=== PATIENT | female | born 1970 | race Caucasian/White ===

== ENCOUNTER 2017-04-25 06:38 | Observation (INO) | payer OTHER ==
[~2017-04-25] VITALS: Ht 172.7 cm; Wt 89.8 kg
[2017-04-25] VITALS (7 sets, daily range): BP systolic 140–151; BP diastolic 80–89
[~2017-04-25 06:38] MED LIST: CHOL500016 PO; CYAN10005 PO; DEXT30CA6 PO; ESTR0.3T PO; FLUT1DIS IH; FOLI1TAB16 PO; LEVO88TA4 PO; PANT40TA5 PO; PROAIR HFA8.5 GM INH
[2017-04-25] MEDS ORDERED: IV RINGERS,LACTATED 1000ML 1,000 ML IV SCH (07:00)
[2017-04-25] MEDS ORDERED: HYDROmorphone 2 MG/ML VIAL IV PRN (07:00)
[2017-04-25] MEDS ORDERED: PROCHLORPERAZINE 10 MG/2 ML VIAL. IV PRN ×2 (07:00→11:00)
[2017-04-25] MEDS ORDERED: ONDANSETRON PF 4 MG/2 ML VIAL. IV PRN ×2 (07:00→11:00)
[2017-04-25] MEDS ORDERED: LIDOCAINE 1% 1 ML SYRINGE. ID PRN (07:00)
[2017-04-25] MEDS ORDERED: LIDOCAINE 1%/EPI 1:100,000 20 ML VIAL. ONE (07:14)
[2017-04-25] MEDS ORDERED: fentaNYL PF VIAL 100 MCG/2 ML VIAL ONE (07:38)
[2017-04-25] MEDS ORDERED: MIDAZOLAM HCL/PF 2 MG/2 ML VIAL. ONE (07:38)
[2017-04-25] MEDS ORDERED: DEXAMETHASONE SOD PHOS 20 MG/5 ML VIAL. ONE (07:39)
[2017-04-25] MEDS ORDERED: PROPOFOL 20 ML IV ONE ×2 (07:39→10:32)
[2017-04-25] MEDS ORDERED: ONDANSETRON PF 4 MG/2 ML VIAL. ONE (07:39)
[2017-04-25] MEDS ORDERED: LIDOCAINE 2% PF Vial for OR 5 ML VIAL. ONE (07:39)
[2017-04-25] MEDS ORDERED: SEVOFLURANE 61 TO 120 MINUTES. IH ONE (07:39)
[2017-04-25] MEDS ORDERED: FAMOTIDINE 20 MG/2 ML VIAL ONE (07:39)
[2017-04-25] MEDS ORDERED: ESTROGENS, CONJ VAGINAL CREAM 30GM TUBE. ONE (07:45)
[2017-04-25] MEDS ORDERED: ePHEDrine PF IN SALINE 50 MG/5 ML DISP.SYRIN IV ONE (09:22)
--- NOTE | 2017-04-25 10:47 | PDOC ---
BRIEF OPERATIVE NOTE Pre-Op Diagnosis 1. AGUSTINA 2. Cystocele Stage 3 3. Rectocele Stage 3 Post-Op Diagnosis Same Procedure Performed 1. Suburethral Bladder Sling 2. Anterior and Posterior Colporrhaphy with Acell bioidentical mesh Surgeon Dr. Esparza Anesthesia Type: General Blood Loss 150 ml Specimens Obtained none Findings Cystocele and rectocele stage 3, AGUSTINA Complications none FREEDOM ESPARZA Jr, MD Apr 25, 2017 10:47
[2017-04-25] MEDS ORDERED: SIMETHICONE 80 MG TAB.CHEW PO PRN (11:00)
[2017-04-25] MEDS ORDERED: diphenhydrAMINE HCL 25 MG CAPSULE PO PRN (11:00)
[2017-04-25] MEDS ORDERED: diphenhydrAMINE 50 MG/ML VIAL IV PRN (11:00)
[2017-04-25] MEDS: fentaNYL PF VIAL 100 MCG/2 ML VIAL IV PRN ×4 (11:00→11:40)
[2017-04-25] MEDS ORDERED: ZOLPIDEM 5 MG TABLET. PO PRN (11:00)
[2017-04-25] MEDS ORDERED: CALCIUM CARBONATE 500 MG TAB.CHEW PO PRN (11:00)
[2017-04-25] MEDS ORDERED: DEXTROSE 50% 25 GM / 50ML DISP.SYRIN. IV PRN (11:00)
[2017-04-25] MEDS ORDERED: 0.9 % SODIUM CHLORIDE 10 ML DISP.SYRIN. IV PRN (11:00)
[2017-04-25] MEDS: GABAPENTIN 300 MG CAPSULE. PO SCH ×2 (13:52→20:57)
[2017-04-25] MEDS: oxyCODONE/APAP 5/325 1 TAB TABLET PO PRN ×3 (13:53→23:32)
[2017-04-25] MEDS: KETOROLAC TROMETHAMINE 30 MG/ML INJ. IV PRN ×2 (15:21→20:58)
[2017-04-26 04:02] LABS: BASO % 0 % (0-3); EOS % 0 % (0-3); HEMATOCRIT 35.5 % (36.0-47.0); HEMOGLOBIN 11.6 g/dL (12.0-15.5); LYMPH # 3.4 x10^3/uL (1.0-4.8); LYMPH % 29 % (24-48); MEAN CORPUSCULAR HEMOGLOBIN 30 pg (25-35); MEAN CORPUSCULAR HGB CONC 33 g/dL (31-37); MEAN CORPUSCULAR VOLUME 92 fL (79-100); MONO % 7 % (0-9); NEUT % 64 % (31-73); PLATELET COUNT 246 x10^3/uL (140-400); RED BLOOD COUNT 3.86 x10^6/uL (3.50-5.40); RED CELL DISTRIBUTION WIDTH 12.8 % (11.5-14.5); WHITE BLOOD COUNT 11.8 x10^3/uL (4.0-11.0)
[2017-04-26] MEDS: KETOROLAC TROMETHAMINE 30 MG/ML INJ. IV PRN (05:49)
[2017-04-26] MEDS: GABAPENTIN 300 MG CAPSULE. PO SCH ×2 (05:49→13:40)
[2017-04-26] MEDS: oxyCODONE/APAP 5/325 1 TAB TABLET PO PRN ×3 (05:50→13:39)
[2017-04-26 06:05] VITALS: BP 132/97
[2017-04-26 08:15] VITALS: BP 136/92
[2017-04-26 13:40] VITALS: BP 148/91
--- NOTE | 2017-04-26 13:43 | PDOC ---
SURGICAL PROGRESS NOTE Subjective Pt. feeling well. Pain controlled. Pt. ambulating and voiding without difficulty. Vital Signs Vital Signs Date Time Temp Pulse Resp B/P (MAP) Pulse Ox O2 Delivery O2 Flow Rate FiO2 04/26/17 10:21 18 Room Air 04/26/17 08:15 97.9 87 136/92 (107) 96 97.9 04/25/17 11:00 10 I&O Intake and Output 04/26/17 07:00 Intake Total 3750 ml Output Total 5150 ml Balance -1400 ml Intake Oral 1700 ml IV Total 2050 ml Output Urine Total 5000 ml Estimated Blood Loss 150 ml General: Alert, Oriented X3 HEENT: Atraumatic Lungs: Clear to auscultation Heart: Regular rate Abdomen: Normal bowel sounds, Soft, No tenderness Extremities: No edema Psych/Mental Status: Mental status NL Labs Laboratory Tests Test 04/26/17 03:30 White Blood Count 11.8 x10^3/uL (4.0-11.0) Red Blood Count 3.86 x10^6/uL (3.50-5.40) Hemoglobin 11.6 g/dL (12.0-15.5) Hematocrit 35.5 % (36.0-47.0) Mean Corpuscular Volume 92 fL (79-100) Mean Corpuscular Hemoglobin 30 pg (25-35) Mean Corpuscular Hemoglobin Concent 33 g/dL (31-37) Red Cell Distribution Width 12.8 % (11.5-14.5) Platelet Count 246 x10^3/uL (140-400) Neutrophils (%) (Auto) 64 % (31-73) Lymphocytes (%) (Auto) 29 % (24-48) Monocytes (%) (Auto) 7 % (0-9) Eosinophils (%) (Auto) 0 % (0-3) Basophils (%) (Auto) 0 % (0-3) Neutrophils # (Auto) 7.5 x10^3uL (1.8-7.7) Lymphocytes # (Auto) 3.4 x10^3/uL (1.0-4.8) Monocytes # (Auto) 0.8 x10^3/uL (0.0-1.1) Eosinophils # (Auto) 0.0 x10^3/uL (0.0-0.7) Basophils # (Auto) 0.0 x10^3/uL (0.0-0.2) Laboratory Tests Test 04/26/17 03:30 White Blood Count 11.8 x10^3/uL (4.0-11.0) Red Blood Count 3.86 x10^6/uL (3.50-5.40) Hemoglobin 11.6 g/dL (12.0-15.5) Hematocrit 35.5 % (36.0-47.0) Mean Corpuscular Volume 92 fL (79-100) Mean Corpuscular Hemoglobin 30 pg (25-35) Mean Corpuscular Hemoglobin Concent 33 g/dL (31-37) Red Cell Distribution Width 12.8 % (11.5-14.5) Platelet Count 246 x10^3/uL (140-400) Neutrophils (%) (Auto) 64 % (31-73) Lymphocytes (%) (Auto) 29 % (24-48) Monocytes (%) (Auto) 7 % (0-9) Eosinophils (%) (Auto) 0 % (0-3) Basophils (%) (Auto) 0 % (0-3) Neutrophils # (Auto) 7.5 x10^3uL (1.8-7.7) Lymphocytes # (Auto) 3.4 x10^3/uL (1.0-4.8) Monocytes # (Auto) 0.8 x10^3/uL (0.0-1.1) Eosinophils # (Auto) 0.0 x10^3/uL (0.0-0.7) Basophils # (Auto) 0.0 x10^3/uL (0.0-0.2) Assessment/Plan A: POD#1 s/p Bladder sling and A&P Repair with bioidentical mesh P: D/c home. Problems: FREEDOM GARCIA Jr, MD Apr 26, 2017 13:43
[2017-04-26] MEDS ORDERED: DOCU-109 PO (13:45)
[2017-04-26] MEDS ORDERED: IBUP-1060 PO (13:45)
[2017-04-26] MEDS ORDERED: OXYC-323 PO (13:45)
--- NOTE | 2017-05-08 19:03 | OP ---
DATE OF SURGERY: 04/25/2017 PREOPERATIVE DIAGNOSES: Cystocele, rectocele, stress urinary incontinence. POSTOPERATIVE DIAGNOSES: Cystocele, rectocele, stress urinary incontinence. PROCEDURE: 1. Suburethral bladder sling placement. 2. Anterior and posterior colporrhaphy with bio-identical mesh. SURGEON: Floyd Garcia MD PROCEDURE: The patient was taken to the surgery suite and placed in dorsal lithotomy position. She was prepped with Betadine solution for vaginal prep. After adequate anesthesia, a weighted speculum was placed vaginally. Allis clamp was placed 1 cm below the urethral orifice, second Allis clamp was placed about 3 cm below the first Allis clamp at the midline of the anterior vaginal wall mucosa. 1% lidocaine with epinephrine was injected between the 2 Allis clamps as well as on the periurethral space. Ejection was made in the right and left lower groin region. An incision was made between the 2 Allis clamps on a vertical fashion. An incision was made at the groin region as well bilaterally. The anterior vaginal wall mucosa was dissected free of the pubovesical fascia using sharp dissection all the way to the obturator foramen bilaterally. The Obtryx trocar was then placed through the patient's left groin region, ____ index finger and exudate out through the left periurethral space. Same process took place with the right trocar. The suburethral mesh was then positioned ____ fit using a size 7 Hegar dilator. Cystoscopy was then performed in which the bladder was intact. The ureterovesical junctions were functioning bilaterally. Cystoscope was removed. The excess mesh of the groin region was cut at the level of skin. The groin incisions sites were reapproximated using Dermabond. The anterior compartment was further dissected using sharp dissection with Metzenbaum scissors. The pubovesical fascia was reapproximated using 2-0 Vicryl suture in an interrupted fashion. The bio-identical mesh was also placed over the defect area, ____ to the defect area underneath the bladder give more support. The vaginal mucosa was then reapproximated using 2-0 Vicryl suture in a [id number] manner. For the posterior colporrhaphy, two Allis clamps were placed on the posterior fourchette. 1% lidocaine with epinephrine was injected between the 2 Allis clamps. A scalpel was utilized to make a transverse incision between the 2 Allis clamps. Metzenbaum scissors was used ____ the posterior vaginal wall mucosa. The posterior vaginal wall mucosa was dissected away from the endopelvic fascia bilaterally. The endopelvic fascia was then reapproximated using 2-0 Vicryl suture in an interrupted fashion. Bio-identical mesh was also overlaid on the posterior vaginal wall and tied down to the endopelvic fascia for better support. The remaining posterior vaginal wall mucosa was reapproximated using 2-0 Vicryl suture in a [id number] manner. A Sibley catheter was also placed and ____ which elicited clear yellow urine. Moist vaginal packing was placed. The patient was taken to recovery room in stable condition. Sponge and needle count correct x 3. FLOYD GARCIA MD DR: SEPIDEH/tami JOB#: [id number] / [id number]
== END 2017-04-26 14:18 | disposition home or self-care (01) ==
LOC: SURG 06:38 → 3 NORTH 11:00
PROVIDERS: ADMIT Obstetrics & Gynecology; ATTEND Obstetrics & Gynecology
DX: N81.10 Cystocele, unspecified (principal); N81.6 Rectocele; N39.3 Stress incontinence (female) (male)
CPT/HCPCS: 36415; 57260; 57267; 57288; 85027; 96374; 96376; G0378; G0379; J0690; J1100; J1885; J2001; J2250; J2704; J3010; J3490; J7030; S0028; J2405; C1771

== ENCOUNTER 2017-08-01 09:56 | Day surgery (SDC) | payer OTHER ==
[~2017-08-01] VITALS: Ht 172.7 cm; Wt 88.5 kg
[~2017-08-01 09:56] MED LIST changes: +DOCU-109 PO; +IBUP-1060 PO; +IV RINGERS,LACTATED 1000ML 1,000 ML IV SCH; +LIDOCAINE 1% PF 2 ML VIAL. ID PRN; +LIDOCAINE 1%/EPI 1:100,000 20 ML VIAL. ONE; +ONDANSETRON PF 4 MG/2 ML VIAL. IV PRN; +OXYC-323 PO; +PROCHLORPERAZINE 10 MG/2 ML VIAL. IV PRN; +fentaNYL PF VIAL 100 MCG/2 ML VIAL IV PRN
[2017-08-01] MEDS ORDERED: fentaNYL PF VIAL 100 MCG/2 ML VIAL ONE (11:20)
[2017-08-01] MEDS ORDERED: MIDAZOLAM HCL/PF 2 MG/2 ML VIAL. ONE (11:56)
[2017-08-01] MEDS ORDERED: SEVOFLURANE 31 TO 60 MINUTES. IH ONE (12:42)
[2017-08-01] MEDS ORDERED: DEXAMETHASONE SOD PHOS 20 MG/5 ML VIAL. ONE (12:42)
[2017-08-01] MEDS ORDERED: PROPOFOL 20 ML IV ONE (12:42)
[2017-08-01] MEDS ORDERED: ONDANSETRON PF 4 MG/2 ML VIAL. ONE (12:42)
[2017-08-01] MEDS ORDERED: LIDOCAINE 2% PF Vial for OR 5 ML VIAL. ONE (12:42)
--- NOTE | 2017-08-01 12:45 | PDOC ---
BRIEF OPERATIVE NOTE Pre-Op Diagnosis Bladder Sling mesh erosion Post-Op Diagnosis Same Procedure Performed Bladder sling removal Surgeon Dr. Esparza Anesthesia Type: General Blood Loss less than 10 ml Specimens Obtained bladder sling mesh Findings bladder sling mesh erosion in location of midurethra; no involvement of bladder. Complications none FREEDOM ESPARZA Jr, MD Aug 01, 2017 12:45
--- NOTE | 2017-08-01 12:46 | DISCH ---
DISCHARGE INSTRUCTIONS Condition on Discharge Condition on Discharge: Stable Activity After Discharge Activity Instructions for Disc: Activity as tolerated Lifting Instructions after Dis: No heavy lifting Driving Instructions after Dis: Do not drive today Diet after Discharge Diet after Discharge: Regular Contacting the [facility] after DC Call your doctor for: Concerns you may have Follow-Up Follow up with: Dr. Esparza in 1 week. FREEDOM ESPARZA Jr, MD Aug 01, 2017 12:46
[2017-08-01] MEDS: fentaNYL PF VIAL 100 MCG/2 ML VIAL IV PRN ×2 (13:00→13:21)
--- NOTE | 2017-08-01 13:12 | OP ---
DATE OF SURGERY: PREOPERATIVE DIAGNOSES: Bladder sling mesh erosion. POSTOPERATIVE DIAGNOSES: Bladder sling mesh erosion. PROCEDURE: Bladder sling removal. SURGEON: Floyd Esparza MD ANESTHESIA: LMA. ESTIMATED BLOOD LOSS: Less than 10 mL. COMPLICATIONS: None. FINDINGS: Bladder sling mesh erosion to location of mid urethra. No involvement of the bladder or urethra or bladder neck. SUMMARY: A 47-year-old female who had undergone bladder sling placement a few months ago. She presented to clinic during postop healing time and was found to have bladder sling mesh erosion of about 1.5 cm in width. The patient was counseled on bladder sling removal, risks, benefits and expectations. She was allowed to finish healing from her primary surgery, have been scheduled for bladder sling removal. The patient was counseled on risks, benefits and expectations and voiced a clear understanding to proceed. DESCRIPTION OF PROCEDURE: The patient was taken to the surgery suite and placed in dorsal lithotomy position. She was prepped with Betadine solution and draped in sterile fashion. After adequate anesthesia, a weighted speculum was placed. Allis clamp was placed to the midline of the anterior vaginal wall mucosa just below the urethral orifice. Injection of 1% lidocaine with epinephrine was injected in the anterior vaginal wall mucosa as well as in the periurethral space. Incision was made just around the mesh exposure. With the aid of Allis clamps and Metzenbaum scissors, the exposed bladder sling mesh was removed. It was also removed as much as possible in the periurethral space up to the obturator foramen bilaterally. Cystoscopy was then performed. There was no evidence of mesh erosion into the bladder or urethra area or the bladder neck. The urethrovesical junctions were functioning normally. The cystoscope was removed. The anterior vaginal wall mucosa was reapproximated using 2-0 Vicryl suture in a [id number] manner. The patient tolerated the procedure well and was taken to recovery room in stable condition. Sponge and needle count correct x 3. FLOYD ESPARZA MD DR: SEPIDEH/tami JOB#: [id number] / [id number]
[2017-08-01] MEDS ORDERED: OXYC-323 PO (13:36)
[2017-08-01 13:45] VITALS: BP 126/82
[2017-08-01] MEDS ORDERED: oxyCODONE/APAP 5/325 1 TAB TABLET PO PRN (13:45)
[2017-08-01 14:21] LABS: BASO % 1 % (0-3); EOS % 1 % (0-3); HEMATOCRIT 38.5 % (36.0-47.0); LYMPH # 3.3 x10^3/uL (1.0-4.8); LYMPH % 55 % (24-48); MEAN CORPUSCULAR HEMOGLOBIN 31 pg (25-35); MEAN CORPUSCULAR HGB CONC 34 g/dL (31-37); MEAN CORPUSCULAR VOLUME 91 fL (79-100); MONO % 6 % (0-9); NEUT % 37 % (31-73); PLATELET COUNT 268 x10^3/uL (140-400); RED BLOOD COUNT 4.24 x10^6/uL (3.50-5.40); RED CELL DISTRIBUTION WIDTH 13.8 % (11.5-14.5); WHITE BLOOD COUNT 5.9 x10^3/uL (4.0-11.0)
--- NOTE | 2017-08-02 16:51 | PATHOLOGY ---
PATHOLOGY REPORT * * * * * * * * FINAL DIAGNOSIS: Segments of mesh, clinically from bladder sling (Gross only): (JPM:mml; 08/02/2017) REPORT ELECTRONICALLY SIGNED BY: Robert Cerrato M.D. DATE/TIME: 08/02/2017 16:50 * * * * * * * * GROSS PATHOLOGY: The specimen is received in formalin labeled "Miladys Mcqueen, bladder sling mesh". Received are two segments of blue mesh-like material with a slight amount of adherent white-aaron tissue measuring 1.5 x 1.1 x 0.2 cm in aggregate dimensions. A gross photograph is taken. Sections are not submitted. (CAA; 08/02/2017) INITIAL CPT CODE(S): A; 99616 Professional services performed by [facility] [place] [address] Technical services performed by [facility] at [address] [place] [address]. SPECIMEN(S) RECEIVED: A.Bladder sling mesh CLINICAL HISTORY: None provided PATIENT: MILADYS MCQUEEN /AGE: 906/08/1970 (Age: 47) PATIENT #: [id number] ALT CASE #: SPECIMEN COLLECTION DATE: 08/01/2017 SPECIMEN RECEIVED DATE: 08/01/2017 [facility] - [address] [place] [address] - PHONE: [phone] * * * END OF REPORT * * *
== END 2017-08-01 14:10 | disposition home or self-care (01) ==
LOC: SURG 09:56
PROVIDERS: ATTEND Obstetrics & Gynecology
DX: T83.718A Erosion of other implanted mesh to organ or tissue, initial encounter (principal); Y84.8 Other medical procedures as the cause of abnormal reaction of the patient, or of later complication, without mention of misadventure at the time of the procedure; Y92.89 Other specified places as the place of occurrence of the external cause; E66.9 Obesity, unspecified; Z68.29 Body mass index [BMI] 29.0-29.9, adult; Z88.6 Allergy status to analgesic agent; E03.9 Hypothyroidism, unspecified; F32.9 Major depressive disorder, single episode, unspecified; Z90.710 Acquired absence of both cervix and uterus; Z72.89 Other problems related to lifestyle; Z86.39 Personal history of other endocrine, nutritional and metabolic disease
CPT/HCPCS: 36415; 57287; 85025; 86850; 86900; 86901; J0690; J1100; J2250; J2405; J2704; J3010; J3490; J7030; J2001